=== PATIENT | male | born 1990 | race African-American/Black ===

== ENCOUNTER 2024-09-15 12:47 | Emergency (ER) | payer MEDICAID ==
[~2024-09-15] VITALS: Ht 165.1 cm; Wt 66.0 kg
[2024-09-15] MEDS ORDERED: LORAZEPAM 2MG/ML INJ IM ONE (15:00)
[2024-09-15] MEDS ORDERED: HALOPERIDOL LACTATE 5MG/ML VIAL IM ONE (15:00)
[2024-09-15 15:14] VITALS: O2SAT 98
[2024-09-15] MEDS: OLANZAPINE 10 MG/VIAL IM ONE (15:14)
[2024-09-15] MEDS: MIDAZOLAM HCL 2 MG/2 ML VIAL IM ONE (15:14)
[2024-09-15 16:51] LABS: BASOPHILS % 0.8 % (0.0-2.0); EOSINOPHILS % 1.8 % (0.0-5.0); HEMATOCRIT. 46.2 % (42.0-52.0); HEMOGLOBIN. 15.9 g/dL (14.0-18.0); LYMPHOCYTES % 30.6 % (20.0-50.0); MEAN CORPUSCULAR HEMOGLOBIN 30.3 pg (28.0-32.0); MEAN CORPUSCULAR HGB CONC 34.5 g/dL (31.0-37.0); MEAN CORPUSCULAR VOLUME 87.7 fL (80.0-94.0); MEAN PLATELET VOLUME 7.6 fl (7.4-10.4); MONOCYTES % 11.5 % (2.0-8.0); NEUTROPHILS % 55.3 % (40.0-76.0); PLATELET 304 x1000/uL (130-400); RED BLOOD CELL COUNT 5.27 mill/uL (4.7-6.1); RED CELL DISTRIBUTION WIDTH 13.3 % (11.6-14.6); WHITE BLOOD COUNT 7.1 x1000/uL (4.5-11.0)
[2024-09-15 17:03] LABS: CARBON DIOXIDE 26 mEq/L (21-32); CHLORIDE 106 mEq/L (98-107); POTASSIUM 3.8 mEq/L (3.5-5.1); SODIUM 140 mEq/L (136-145)
[2024-09-15 17:04] LABS: CALCIUM 9.9 mg/dL (8.7-10.4)
[2024-09-15 17:09] LABS: GLUCOSE 100 mg/dL (70-105); UREA NITROGEN BLOOD 11 mg/dL (9-23)
[2024-09-15 17:24] LABS: ETHANOL BLOOD < 10 mg/dL (<10)
[2024-09-15 20:00] VITALS: BP 119/98; PULSE 98; RESP 20; TEMP 35.83620; O2SAT 96
== END 2024-09-15 21:27 | disposition home or self-care (01) ==
LOC: ER 12:47
DX: Z00.8 Encounter for other general examination (principal); I49.9 Cardiac arrhythmia, unspecified; Z20.822 Contact with and (suspected) exposure to COVID-19
CPT/HCPCS: 80048; 80320; 85025; 36415; 93005; 96372; 99291; 87426; J3490; J2250; G0480